=== PATIENT | female | born 1965 | race Caucasian/White ===

== ENCOUNTER → 2021-07-09 | Outpatient (CLI) | payer OTHER | LOC: M EKG 16:22 | PROVIDERS: ATTEND Internal Medicine | DX: R00.2 Palpitations (principal) ==

== ENCOUNTER → 2021-11-02 | Outpatient (REF) | payer OTHER ==
[2021-11-02 13:06] LABS: BACTERIA, URINE AUTO NEGATIVE (NEGATIVE); MUCUS, URINE SMALL (NEGATIVE); RBC, URINE AUTO TNTC /HPF (0-3); SQUAMOUS EPITHELIAL CELL UR AU 1 /HPF (0-6); WBC, URINE AUTO 117 /HPF (0-3)
== END ==
LOC: M LAB REF 12:30
PROVIDERS: ATTEND Internal Medicine
DX: R30.0 Dysuria (principal); R31.9 Hematuria, unspecified

== ENCOUNTER → 2021-12-28 | Outpatient (CLI) | payer OTHER | LOC: M WHC 08:12 | PROVIDERS: ATTEND Internal Medicine | DX: Z12.31 Encounter for screening mammogram for malignant neoplasm of breast (principal); N63.41 Unspecified lump in right breast, subareolar; N63.15 Unspecified lump in the right breast, overlapping quadrants; Z80.3 Family history of malignant neoplasm of breast | CPT/HCPCS: 76641; 77066; G0279 ==

== ENCOUNTER → 2022-01-06 | Outpatient (CLI) | payer OTHER ==
[~2022-01-06] MED LIST: **SFHN** LIDOCAINE 1% MDV 20ML VIAL ONE; **SFHN** SODIUM BICARBONATE 8.4% 10MEQ 10ML VIAL ONE; ARNU1INH PO; D 101000 PO; LEVO100C PO; MAGN100T PO; METO1TAB7 PO; PRIMROSE OIL PO; PROAAER10 INH; ROSU10TA6 PO
[2022-01-06 12:31] VITALS: BP 102/68
== END ==
LOC: M WHCPRO 09:57
PROVIDERS: ATTEND Internal Medicine
DX: N63.11 Unspecified lump in the right breast, upper outer quadrant (principal); N63.12 Unspecified lump in the right breast, upper inner quadrant
CPT/HCPCS: 19083; 19084; 77065; 88305; G0279

== ENCOUNTER → 2023-05-12 | Outpatient (CLI) | payer OTHER ==
[~2023-05-12] MED LIST changes: -**SFHN** LIDOCAINE 1% MDV 20ML VIAL ONE; -**SFHN** SODIUM BICARBONATE 8.4% 10MEQ 10ML VIAL ONE; +ISOVUE-370 76% 100ML VIAL ONE
== END ==
LOC: M PLAIMG 09:04
PROVIDERS: ATTEND Internal Medicine
DX: R11.2 Nausea with vomiting, unspecified (principal); R10.9 Unspecified abdominal pain
CPT/HCPCS: 74177; 87086; Q9967

== ENCOUNTER → 2023-05-22 | Outpatient (REF) | payer OTHER ==
[~2023-05-22] MED LIST changes: -ISOVUE-370 76% 100ML VIAL ONE
[2023-05-22 18:17] LABS: AMORPHOUS SEDIMENT SMALL (NEGATIVE); APPEARANCE, URINE TURBID (CLEAR); BACTERIA, URINE AUTO NEGATIVE (NEGATIVE); BILIRUBIN, URINE AUTO NEGATIVE (NEGATIVE); BLOOD, URINE BLOOD NEGATIVE (NEGATIVE); COLOR, URINE AMBER (YELLOW); GLUCOSE, URINE (UA) AUTO NEGATIVE (NEGATIVE); KETONE, URINE AUTO NEGATIVE (NEGATIVE); LEUKOCYTE ESTERASE, URINE AUTO NEGATIVE (NEGATIVE); MUCUS, URINE SMALL (NEGATIVE); NITRITE, URINE AUTO NEGATIVE (NEGATIVE); PROTEIN, URINE AUTO NEGATIVE (NEGATIVE); RBC, URINE AUTO 2 /HPF (0-3); SPECIFIC GRAVITY URINE AUTO 1.027 (1.002-1.035); SQUAMOUS EPITHELIAL CELL UR AU 1 /HPF (0-6); UROBILINOGEN, URINE AUTO 0.2 mg/dL (0.0-2.0); WBC, URINE AUTO 3 /HPF (0-3)
[2023-05-22 18:49] LABS: HIV 1&2 SCREEN NEGATIVE (NEGATIVE)
[2023-05-22 18:55] LABS: HEPATITIS C VIRUS ABY INDEX < 0.02 INDEX (<0.8)
[2023-05-22 18:56] LABS: HEPATITIS B CORE ANTIBODY IGM NEGATIVE (NEGATIVE)
== END ==
LOC: M LAB REF 16:35
PROVIDERS: ATTEND Internal Medicine
DX: R31.29 Other microscopic hematuria (principal); R74.9 Abnormal serum enzyme level, unspecified

== ENCOUNTER → 2023-08-16 | Outpatient (REF) | payer OTHER | LOC: M LAB REF 16:41 | PROVIDERS: ATTEND Internal Medicine | DX: R74.9 Abnormal serum enzyme level, unspecified (principal) ==